=== PATIENT | female | born 1960 | race Caucasian/White ===

== ENCOUNTER 2016-07-13 13:43 | Emergency (ER) | payer OTHER ==
[~2016-07-13] VITALS: Ht 167.6 cm; Wt 58.4 kg
[~2016-07-13 13:43] MED LIST: ARTHROTEC 501 TABLET PO; BUTALB-ACETAMI1 EACH PO; CELEBREX200 MG PO; CYMBALTA30 MG PO; CYMBALTA60 MG PO; DESYREL100 MG PO; Ecotrin PO; GLUCOPHAGE500 MG PO; KLONOPIN0.5 M1 PO; LEVOSTATIN; LEVOTHROID200 MCG PO; LYRICA150 MG PO; MOTRIN600 MG PO; MOTRIN800 MG PO; NASONEX17 GM NS; NITROGLYCERIN0.4 MG SL; NORCO 5/3251 TABLET PO; PERCOCET 5/31 TABLET PO; PREDNISONE10 MG PO; PREDNISONE20 M1 G-TUBE; PROTONIX40 MG PO; SYNTHROID200 MCG PO; SYNTHROID50 MCG PO; TRAZODONE HCL50 MG PO; ULTRAM50 MG PO; VICODIN 5-3001 EACH PO; XYZAL5 MG PO
[2016-07-13 16:39] LABS: HEMATOCRIT 40.2 % (36.0-46.0); MCH 30.4 PG (29.0-34.0); MCHC 33.1 G/DL (30.0-36.0); RBC DIS.WIDTH-CV 14.6 % (11.8-14.6); RBC DIS.WIDTH-SD 49.1 % (39-53); RED BLOOD COUNT 4.37 M/uL (3.80-5.20)
[2016-07-13 16:55] LABS: CHLORIDE 107 mEq/L (99-109); POTASSIUM 3.6 mEq/L (3.7-5.4); SODIUM 142 mEq/L (136-147)
[2016-07-13 16:57] LABS: GLUCOSE 74 mg/dL (70-99)
[2016-07-13 16:59] LABS: ANION GAP 12 MEQ/L (2-14)
[2016-07-13 17:01] LABS: GFR ESTIMATE (CALCULATED) > 59 mL/min/
[2016-07-13 17:02] LABS: UREA NITROGEN (BUN) 13 mg/dL (9-23)
[2016-07-13 17:40] LABS: PLATELET COUNT 250 K/uL (156-360)
[2016-07-13] MEDS ORDERED: NORCO 7.5/321 TABLET PO (19:28)
[2016-07-13] MEDS ORDERED: PEPCID40 MG PO (19:29)
[2016-07-13 19:48] VITALS: BP 107/57
== END 2016-07-13 19:49 | disposition home or self-care (01) ==
LOC: EME 13:43
PROVIDERS: Emergency Medicine
DX: K29.70 Gastritis, unspecified, without bleeding (principal); G89.18 Other acute postprocedural pain; M54.9 Dorsalgia, unspecified; E11.9 Type 2 diabetes mellitus without complications; E03.9 Hypothyroidism, unspecified; Z79.52 Long term (current) use of systemic steroids; Z79.82 Long term (current) use of aspirin; F17.200 Nicotine dependence, unspecified, uncomplicated
CPT/HCPCS: 71260; 80048; 85027; 99281; 99285; J7120

== ENCOUNTER 2016-12-13 06:41 | Day surgery (SDC) | payer OTHER ==
[~2016-12-13] VITALS: Ht 167.6 cm; Wt 59.4 kg
[~2016-12-13 06:41] MED LIST changes: +ALDARA1 EAC1 TP; +LIPITOR10 MG PO; +NORCO 7.5/321 TABLET PO; +NORVASC10 MG PO; +PEPCID40 MG PO; +STRESS FORMULA1 EA13 PO; +SYNTHROID300 MCG PO; -SYNTHROID50 MCG PO
[2016-12-13 07:08] LABS: POINT-OF-CARE METER ID UU13113694
[2016-12-13 07:12] VITALS: BP 120/58
[2016-12-13] MEDS ORDERED: MOTRIN600 MG PO (09:18)
[2016-12-13] MEDS ORDERED: NORCO 5/3251 TABLET PO (09:18)
[2016-12-13 10:20] VITALS: BP 83/49
[2016-12-13 11:07] LABS: INTERNAL CONTROL VALID? YES
[2016-12-13 11:10] VITALS: BP 113/51
== END 2016-12-13 11:16 | disposition home or self-care (01) ==
LOC: SDC
PROVIDERS: Obstetrics & Gynecology
PROC: 0UBC7ZX Excision of Cervix, Via Natural or Artificial Opening, Diagnostic (ICD-10-PCS; principal; 2016-12-13)
DX: D06.7 Carcinoma in situ of other parts of cervix (principal); N88.2 Stricture and stenosis of cervix uteri; K21.9 Gastro-esophageal reflux disease without esophagitis; M79.7 Fibromyalgia; E78.1 Pure hyperglyceridemia; E03.9 Hypothyroidism, unspecified; F17.210 Nicotine dependence, cigarettes, uncomplicated; Z82.49 Family history of ischemic heart disease and other diseases of the circulatory system; Z80.49 Family history of malignant neoplasm of other genital organs; Z82.3 Family history of stroke; Z83.3 Family history of diabetes mellitus; Z83.49 Family history of other endocrine, nutritional and metabolic diseases
CPT/HCPCS: 82948; 84703; 88305; J1170; J1885; J2250; J2405; J3010

== ENCOUNTER 2017-04-08 15:21 | Emergency (ER) | payer OTHER ==
[~2017-04-08] VITALS: Ht 167.6 cm; Wt 61.6 kg
[2017-04-08] MEDS ORDERED: VITAMIN D35000 UNIT PO (17:19)
[2017-04-08] MEDS ORDERED: NORCO 5/3251 TABLET PO (19:21)
[2017-04-08] MEDS ORDERED: MOTRIN600 MG PO (19:21)
[2017-04-08 19:29] VITALS: BP 123/67
== END 2017-04-08 19:49 | disposition home or self-care (01) ==
LOC: EME 15:21
DX: S93.601A Unspecified sprain of right foot, initial encounter (principal); F17.210 Nicotine dependence, cigarettes, uncomplicated; W18.30XA Fall on same level, unspecified, initial encounter; Z88.8 Allergy status to other drugs, medicaments and biological substances
CPT/HCPCS: 73630; 99281; 99284

== ENCOUNTER 2017-10-27 09:10 | Day surgery (SDC) | payer OTHER ==
[~2017-10-27] VITALS: Ht 167.6 cm; Wt 60.3 kg
[~2017-10-27 09:10] MED LIST changes: +VITAMIN D35000 UNIT PO
[2017-10-27 09:33] VITALS: BP 116/57
[2017-10-27 16:33] VITALS: BP 124/61
[2017-10-28] VITALS: BP 118/62
[2017-10-28 04:04] VITALS: BP 110/55
[2017-10-28 07:00] VITALS: BP 106/62
[2017-10-28 07:13] LABS: HEMATOCRIT 35.4 % (36.0-46.0); MCH 28.6 PG (29.0-34.0); MCHC 32.2 G/DL (30.0-36.0); MCV 88.7 FL (83-99); RBC DIS.WIDTH-CV 17.7 % (11.8-14.6); RBC DIS.WIDTH-SD 57.1 % (39-53); WHITE BLOOD COUNT 13.3 K/uL (4.1-10.2)
[2017-10-28 07:22] LABS: HEMOGLOBIN 11.4 G/DL (11.9-15.5); RED BLOOD COUNT 3.99 M/uL (3.80-5.20)
[2017-10-28 07:37] LABS: CHLORIDE 105 MEQ/L (99-109); CREATININE 0.7 MG/DL (0.6-1.3); GFR ESTIMATE (CALCULATED) > 59 mL/min/; GLUCOSE 79 mg/dL (70-99); POTASSIUM 4.3 MEQ/L (3.7-5.4); SODIUM 141 MEQ/L (136-147); UREA NITROGEN (BUN) 8 mg/dL (9-23)
[2017-10-28 07:40] LABS: PLAT.SUFFICIENCY ADEQUATE; PLATELET CLUMPS PRESENT - PLATELET COUNT APPEARS ADQ.; PLATELET COUNT UNABLE TO REPORT K/uL (156-360)
[2017-10-28] MEDS ORDERED: MOTRIN600 MG PO (08:56)
[2017-10-28] MEDS ORDERED: ENDOCET 5-3251 EACH PO (08:56)
[2017-10-28 11:12] VITALS: BP 106/62
== END 2017-10-28 13:21 | disposition home or self-care (01) ==
LOC: SDC 09:10 → 2SOUTH 13:30 → 2EASTP 13:30 → 2SOUTH 13:30 → ENRESERV 13:48 → 2EASTP 15:16 → SDC 15:33 → 2EASTP 10-28 13:21
PROVIDERS: Obstetrics & Gynecology
DX: N80.0 Endometriosis of uterus (principal); A63.0 Anogenital (venereal) warts; N83.8 Other noninflammatory disorders of ovary, fallopian tube and broad ligament; N87.0 Mild cervical dysplasia; J44.9 Chronic obstructive pulmonary disease, unspecified; I10 Essential (primary) hypertension; E03.9 Hypothyroidism, unspecified; K21.9 Gastro-esophageal reflux disease without esophagitis; E78.5 Hyperlipidemia, unspecified; F17.200 Nicotine dependence, unspecified, uncomplicated; Z79.52 Long term (current) use of systemic steroids
CPT/HCPCS: 80048; 81025; 85027; 88305; 88307; G0378; J0690; J1100; J1720; J1885; J2250; J2270; J2405; J2710; J3010; J7120; J7643; S0020